=== PATIENT | female | born 1970 | race Caucasian/White ===

== ENCOUNTER 2021-08-17 08:35 | Outpatient (CLI) | payer BC, SELFPAY ==
--- NOTE | ~2021-08-17 | MR_ITS ---
EXAMINATION: MR shoulder RT wo con DATE: 08/17/2021 09:51 INDICATION: Right shoulder pain. Rotator cuff disorder. TECHNIQUE: Magnetic resonance imaging (MRI) of the right shoulder was performed without intravenous c ontrast. Sequences included axial PD-weighted FS FSE, coronal oblique PD-weighted FS FSE, coronal obl ique T2-weighted FS FSE, sagittal PD-weighted FS FSE, and sagittal T1-weighted SE. COMPARISON: None. FINDINGS: Coracoacromial arch: The acromion undersurface is curved in morphology (type II). The coracoacromial ligament is normal. M ild acromioclavicular osteoarthritis. Rotator cuff: Mild to moderate supraspinatus tendinopathy with articular sided tear extending approximately 1.5 cm AP along the superior facet footplate generally involving one half to two thirds of the tendon thickn ess. There there is a small full-thickness component at the posterior aspect of the tear which measur es 3 to 4 mm AP and 8 mm medial to lateral. Mild infraspinatus and subscapularis tendinopathy without discrete tear. The teres minor tendon is normal. Normal rotator cuff muscle bulk and signal. Biceps tendon, glenoid labrum and glenohumeral cartilage: Long head of the biceps tendon is normal. Glenoid labrum is normal. Glenohumeral cartilage is normal. Fluid: Physiologic amount of fluid in the glenohumeral joint and biceps tendon sheath. No loose osteochondra l bodies. Small amount of fluid in the subacromial/subdeltoid bursa could be due to either mild bursi tis or decompression of the glenohumeral joint fluid through the full-thickness rotator cuff tear def ect. Bones: Normal marrow signal with no edema, fracture or abnormal marrow replacing process. Minimal cystic ирина nges at the the greater and lesser tuberosities on either side of the cephalad aspect of the intertub ercular groove. IMPRESSION: 1. Severe articular sided tear of the distal supraspinatus with small full-thickness component. Reviewed, dictated and finalized at location A. [employer] IMPRESSION: 1. Severe articular sided tear of the distal supraspinatus with small full-thic kness component.
== END 2021-08-17 08:36 | disposition home or self-care (01) ==
PROVIDERS: PCP Family Medicine; Visit Provider Orthopaedic Surgery
DX: M25.511 Pain in right shoulder (principal); G89.29 Other chronic pain
CPT/HCPCS: 73221